=== PATIENT | female | born 1985 | race African-American/Black ===

== ENCOUNTER 2020-01-06 08:37 | Emergency (ER) | payer SELFPAY, OTHER ==
[2020-01-06] MEDS ORDERED: Ibuprofen 800 MG TAB ONE (09:30)
[2020-01-06] MEDS ORDERED: Dexamethasone 4 MG TAB ONE (09:30)
== END 2020-01-06 09:49 | disposition home or self-care (01) ==
LOC: ERS 08:37
DX: U07.1 COVID-19 (principal)
CPT/HCPCS: 99283; J8540

== ENCOUNTER 2020-02-19 08:04 | Emergency (ER) | payer OTHER, SELFPAY ==
[2020-02-19] MEDS ORDERED: Ondansetron ODT 4 MG TAB ONE (08:48)
[2020-02-19] MEDS ORDERED: Ketorolac Tromethamine 30 MG/ML VIAL ONE (08:48)
[2020-02-19 17:20] LABS: SARS-CoV-2 MS2 Positive; SARS-CoV-2 N Gene Negative; SARS-CoV-2 S Gene Negative; SARS-CoV-2 by NAA Not Detected (NotDetected); SARS-CoV-2 orf1ab Negative
== END 2020-02-19 09:25 | disposition home or self-care (01) ==
LOC: ERS 08:04
DX: R51 Headache (principal); R10.9 Unspecified abdominal pain; R11.0 Nausea; Z20.828 Contact with and (suspected) exposure to other viral communicable diseases
CPT/HCPCS: 87635; 96372; 99284; J1885; Q0162; U0003

== ENCOUNTER 2020-03-14 07:31 | Emergency (ER) | payer SELFPAY | END 2020-03-14 08:15 | disposition home or self-care (01) | LOC: ERS 07:31 | DX: M54.5 Low back pain (principal) | CPT/HCPCS: 99281 ==

== ENCOUNTER 2020-06-04 12:10 | Emergency (ER) | payer SELFPAY | END 2020-06-04 12:27 | disposition home or self-care (01) | LOC: ERS 12:10 | DX: J02.9 Acute pharyngitis, unspecified (principal); Z20.822 Contact with and (suspected) exposure to COVID-19 | CPT/HCPCS: 99283 ==

== ENCOUNTER 2020-06-21 19:12 | Emergency (ER) | payer SELFPAY ==
--- NOTE | 2020-06-21 20:07 | RAD ---
LEFT ELBOW FOUR VIEWS: 06/21/20 HISTORY: Elbow pain. No history of injury. There are no signs of fracture, dislocation, joint effusion or other bony or soft tissue findings. IMPRESSION: Negative left elbow. POS: OFF
[2020-06-21] MEDS ORDERED: Ketorolac Tromethamine 30 MG/ML VIAL ONE (20:50)
== END 2020-06-21 20:58 | disposition home or self-care (01) ==
LOC: ERS 19:12
DX: M77.9 Enthesopathy, unspecified (principal)
CPT/HCPCS: 96372; J1885

== ENCOUNTER 2020-07-21 11:10 | Emergency (ER) | payer SELFPAY | END 2020-07-21 14:02 | disposition left against medical advice (07) | LOC: ERS 11:10 | DX: Z53.21 Procedure and treatment not carried out due to patient leaving prior to being seen by health care provider (principal) ==

== ENCOUNTER 2020-07-22 16:03 | Emergency (ER) | payer SELFPAY ==
[2020-07-22] MEDS ORDERED: Bicillin LA 2.4 MILL.UNITS/4 ML SYRINGE ONE (18:06)
[2020-07-22] MEDS ORDERED: Dexamethasone 4 MG TAB ONE ×2 (18:06→18:08)
[2020-07-22] MEDS ORDERED: Bicillin LA 1.2 MILLION UNITS/2 ML SYRINGE ONE (18:08)
== END 2020-07-22 18:33 | disposition home or self-care (01) ==
LOC: ERS 16:03
DX: J02.0 Streptococcal pharyngitis (principal)
CPT/HCPCS: 87430; 96372; 99283; J0561; J8540

== ENCOUNTER 2020-09-17 10:05 | Emergency (ER) | payer SELFPAY ==
[2020-09-17] MEDS ORDERED: Ketorolac Tromethamine 30 MG/ML VIAL ONE (10:28)
== END 2020-09-17 11:00 | disposition home or self-care (01) ==
LOC: ERS 10:05
DX: M25.462 Effusion, left knee (principal)
CPT/HCPCS: 96372; 99283; J1885

== ENCOUNTER 2020-09-30 12:47 | Emergency (ER) | payer SELFPAY ==
[2020-09-30 13:47] LABS: Bacteria/HPF None Seen HPF (None Seen); Bilirubin Negative (Negative); Blood, Urine 3+ (Negative); Clarity Clear (Clear); Glucose, Urine (Dipstick) Normal (Negative); Ketone, Urine Trace mg/dL (Negative); Leukocyte Negative Leu/uL (Negative); Nitrite Negative (Negative); Protein, Urine (Dipstick) 20 mg/dL (Neg-Trace); RBC/HPF 0-3 HPF (0-3); Specific Gravity, Urine 1.023 (1.002-1.036); Urobilinogen Normal mg/dL (Less than 2); WBC/HPF 0-3 HPF (0-3); pH, Urine 6.5 (5.0-9.0)
[2020-09-30 13:51] LABS: Pregnancy Test - Urine (BHCG) Negative (Negative); Pregu Control Background? CLEAR/WHITE (CLR/WHITE); Pregu Control Bar Appear? YES (CONTROL BAR); Specific Gravity 1.022 (1.002-1.036)
[2020-09-30 13:53] LABS: Amphetamine Not Detected (NotDetected); Barbiturates Screen Not Detected (NotDetected); Benzodiazepine Screen Not Detected (NotDetected); Cocaine Metabolite Screen Not Detected (NotDetected); Medtox Control Line Valid? VALID (VALID); Medtox Reader # READER 4; Methadone Not Detected (NotDetected); Methamphetamine Not Detected (NotDetected); Opiate Screen Not Detected (NotDetected); Oxycodone Screen Not Detected (NotDetected); Phencyclidine (PCP) Not Detected (NotDetected); THC/Cannabinoid Screen Detected (NotDetected); Tricyclic Screen Not Detected (NotDetected)
[2020-09-30 14:09] LABS: #Lymphocytes 1.8 thou/uL (1.20-3.40); #Monocytes 0.6 thou/uL (0.11-0.59); #Neutrophils 8.1 thou/uL (1.40-6.50); %Basophils 0.4 % (0.0-1.0); %Eosinophils 0.3 % (0.0-10.0); %Monocytes 5.6 % (0.0-10.0); %Neutrophils 76.7 % (42.0-75.0); Hemoglobin 11.4 g/dL (12.0-16.0); Mean Corpuscular HGB CONC 33.5 g/dL (32.0-36.0); Mean Corpuscular Hemoglobin 31.3 pg (27.0-31.0); Mean Corpuscular Volume 93.4 fL (78.0-98.0); Mean Platelet Volume 8.5 fL (7.4-10.4); Platelet Count 248 thou/uL (130-400); RBC Distribution Width 12.2 % (11.5-14.5); Red Blood Cell (RBC) Count 3.66 mill/uL (4.20-5.40); White Blood Cell (WBC) Count 10.6 thou/uL (4.8-10.8)
[2020-09-30 14:09] LABS: ALT (SGPT) 12 U/L (8-55); AST (SGOT) 19 U/L (5-34); Acetaminophen Less than 6.0 mcg/mL (10.0-30.0); Albumin 3.9 g/dL (3.5-5.0); Alcohol Less than 10 mg/dL (Less than 10); Alkaline Phosphatase 63 U/L (40-110); Anion Gap 14 mmol/L (10-20); BUN (Urea Nitrogen) 8 mg/dL (7.0-18.7); Bilirubin, Total 0.7 mg/dL (0.2-1.2); CK (CPK) 163 U/L (29-168); Calc. Creatinine Clearance 0 mL/min (70-130); Calcium 8.8 mg/dL (7.8-10.44); Carbon Dioxide 19 mmol/L (22-29); Chloride 109 mmol/L (98-107); Globulin 3.8 g/dL (2.4-3.5); Glucose 87 mg/dL (70-105); Protein, Total 7.7 g/dL (6.0-8.3); Salicylate Less than 8.0 mg/dL (15.0-30.0); Sodium 138 mmol/L (136-145)
[2020-09-30] MEDS ORDERED: Acetaminophen 500 MG TAB ONE (19:56)
[2020-10-01] MEDS ORDERED: Ibuprofen 800 MG TAB ONE ×2 (00:48)
[2020-10-01 07:32] LABS: Free T4 (Free Thyroxine) 1.1 ng/dL (0.70-1.48); Thyroid Stimulating Hormone 0.2086 uIU/mL (0.35-4.94)
== END 2020-10-01 15:42 ==
LOC: ERS 12:47
DX: T38.1X2A Poisoning by thyroid hormones and substitutes, intentional self-harm, initial encounter (principal); F32.9 Major depressive disorder, single episode, unspecified; Z79.899 Other long term (current) drug therapy
CPT/HCPCS: 36415; 80053; 80306; 80307; 81003; 81015; 81025; 82550; 84439; 84443; 85025; 93005

== ENCOUNTER 2020-11-14 08:18 | Emergency (ER) | payer SELFPAY ==
[2020-11-14 08:44] LABS: Bilirubin Small (Negative); Blood, Urine Negative (Negative); Glucose, Urine (Dipstick) Negative (Negative); Ketone, Urine Trace mg/dL (Negative); Leukocyte Negative (Negative); Nitrite Negative (Negative); Protein, Urine (Dipstick) Trace mg/dL (Neg-Trace)
[2020-11-14 08:45] LABS: Clarity Clear (Clear)
[2020-11-14 08:47] LABS: Specific Gravity, Urine 1.031 (1.002-1.036)
[2020-11-14 08:48] LABS: Bacteria/HPF None Seen HPF (None Seen); WBC/HPF 0-3 HPF (0-3)
[2020-11-14 08:55] LABS: Pregnancy Test - Urine (BHCG) Negative (Negative); Pregu Control Background? CLEAR/WHITE (CLR/WHITE); Pregu Control Bar Appear? YES (CONTROL BAR); Specific Gravity 1.031 (1.002-1.036)
[2020-11-14 09:38] LABS: #Basophils 0.1 thou/uL (0.0-0.2); #Eosinphils 0.1 thou/uL (0.0-0.7); #Lymphocytes 1.9 thou/uL (1.20-3.40); #Monocytes 0.6 thou/uL (0.11-0.59); #Neutrophils 4.6 thou/uL (1.40-6.50); %Basophils 1.3 % (0.0-1.0); %Eosinophils 0.8 % (0.0-10.0); %Lymphocytes 25.4 % (21.0-51.0); %Monocytes 8.6 % (0.0-10.0); %Neutrophils 63.8 % (42.0-75.0); Hemoglobin 11.2 g/dL (12.0-16.0); Mean Corpuscular HGB CONC 32.8 g/dL (32.0-36.0); Mean Corpuscular Hemoglobin 30.5 pg (27.0-31.0); Mean Corpuscular Volume 93.2 fL (78.0-98.0); Mean Platelet Volume 8.2 fL (7.4-10.4); Platelet Count 254 thou/uL (130-400); RBC Distribution Width 12.1 % (11.5-14.5); Red Blood Cell (RBC) Count 3.66 mill/uL (4.20-5.40); White Blood Cell (WBC) Count 7.3 thou/uL (4.8-10.8)
[2020-11-14 09:59] LABS: ALT (SGPT) 35 U/L (8-55); AST (SGOT) 40 U/L (5-34); Albumin 3.9 g/dL (3.5-5.0); Alkaline Phosphatase 66 U/L (40-110); Anion Gap 12 mmol/L (10-20); BUN (Urea Nitrogen) 5 mg/dL (7.0-18.7); Bilirubin, Total 0.7 mg/dL (0.2-1.2); Calc. Creatinine Clearance 0 mL/min (70-130); Calcium 9.1 mg/dL (7.8-10.44); Carbon Dioxide 22 mmol/L (22-29); Chloride 107 mmol/L (98-107); Globulin 4.1 g/dL (2.4-3.5); Glucose 86 mg/dL (70-105); Lipase 18 U/L (8-78); Potassium 3.8 mmol/L (3.5-5.1); Sodium 137 mmol/L (136-145)
[2020-11-14] MEDS ORDERED: Ondansetron PF 4 MG/2 ML Vial ONE (10:28)
[2020-11-14] MEDS ORDERED: Ketorolac Tromethamine 30 MG/ML VIAL ONE (12:14)
[2020-11-14] MEDS ORDERED: Iopamidol-370 76% 500 ML 1 ML ONE (13:45)
== END 2020-11-14 12:45 | disposition home or self-care (01) ==
LOC: ERS 08:18
DX: R10.84 Generalized abdominal pain (principal)
CPT/HCPCS: 36415; 74177; 80053; 81003; 81025; 83690; 85025; 96374; 96375; J1885; J2405; Q9967

== ENCOUNTER 2020-12-08 08:29 | Emergency (ER) | payer BC, SELFPAY ==
[2020-12-08] MEDS ORDERED: Ketorolac Tromethamine 30 MG/ML VIAL ONE (08:51)
== END 2020-12-08 09:41 | disposition home or self-care (01) ==
LOC: ERS 08:29
DX: M25.462 Effusion, left knee (principal); M25.562 Pain in left knee
CPT/HCPCS: 96372; J1885

== ENCOUNTER 2021-01-18 | Day surgery (SDC) | payer BC | END 2021-01-18 13:25 | disposition home or self-care (01) | PROC: 0CTQXZZ Resection of Adenoids, External Approach (ICD-10-PCS; principal; 2021-01-18) | PROC: 0CTPXZZ Resection of Tonsils, External Approach (ICD-10-PCS; principal; 2021-01-18) ==

== ENCOUNTER 2021-04-28 15:53 | Emergency (ER) | payer BC | END 2021-04-28 17:55 | disposition home or self-care (01) | LOC: ERS 15:53 | DX: M25.562 Pain in left knee (principal) ==

== ENCOUNTER 2021-05-19 08:16 | Emergency (ER) | payer BC ==
[2021-05-19] MEDS ORDERED: Ibuprofen 800 MG TAB ONE (08:36)
== END 2021-05-19 09:05 | disposition home or self-care (01) ==
LOC: ERS 08:16
DX: J20.9 Acute bronchitis, unspecified (principal); R09.1 Pleurisy
CPT/HCPCS: 71045

== ENCOUNTER 2022-02-05 21:47 | Emergency (ER) | payer BC ==
[2022-02-05] MEDS ORDERED: Ketorolac Tromethamine 30 MG/ML VIAL ONE (23:53)
[2022-02-05] MEDS ORDERED: Metoclopramide HCl 10 MG/2 ML VIAL ONE (23:53)
== END 2022-02-06 01:40 | disposition home or self-care (01) ==
LOC: ERS 21:47
DX: G43.909 Migraine, unspecified, not intractable, without status migrainosus (principal)
CPT/HCPCS: 96374; 96375; J1885; J2765

== ENCOUNTER 2022-03-02 15:18 | Emergency (ER) | payer BC ==
[2022-03-02 15:56] LABS: #Eosinphils 0.1 thou/uL (0.0-0.7); #Lymphocytes 2.5 thou/uL (1.20-3.40); #Monocytes 0.6 thou/uL (0.11-0.59); #Neutrophils 6.5 thou/uL (1.40-6.50); %Basophils 0.3 % (0.0-1.0); %Eosinophils 0.8 % (0.0-10.0); %Lymphocytes 25.5 % (21.0-51.0); %Monocytes 5.8 % (0.0-10.0); %Neutrophils 67.7 % (42.0-75.0); Hemoglobin 12.1 g/dL (12.0-16.0); Mean Corpuscular HGB CONC 31.3 g/dL (32.0-36.0); Mean Corpuscular Hemoglobin 29.9 pg (27.0-31.0); Mean Corpuscular Volume 95.6 fL (78.0-98.0); Mean Platelet Volume 8.8 fL (7.4-10.4); Platelet Count 272 thou/uL (130-400); RBC Distribution Width 13.2 % (11.5-14.5); Red Blood Cell (RBC) Count 4.05 mill/uL (4.20-5.40); White Blood Cell (WBC) Count 9.6 thou/uL (4.8-10.8)
[2022-03-02 16:30] LABS: ALT (SGPT) 23 U/L (8-55); AST (SGOT) 19 U/L (5-34); Albumin 4.3 g/dL (3.5-5.0); Alkaline Phosphatase 67 U/L (40-110); Anion Gap 12 mmol/L (10-20); BUN (Urea Nitrogen) 8 mg/dL (7.0-18.7); Bilirubin, Total 0.6 mg/dL (0.2-1.2); Calc. Creatinine Clearance 0 mL/min (70-130); Calcium 9.4 mg/dL (7.8-10.44); Carbon Dioxide 21 mmol/L (22-29); Chloride 109 mmol/L (98-107); Estimated GFR 83; Globulin 4.3 g/dL (2.4-3.5); Glucose 84 mg/dL (70-105); Potassium 3.8 mmol/L (3.5-5.1); Protein, Total 8.6 g/dL (6.0-8.3); Sodium 138 mmol/L (136-145)
[2022-03-02 16:58] LABS: BHCG - Serum Negative (NEGATIVE); Pregs Control Background? CLEAR/WHITE (CLR/WHITE); Pregs Control Bar Appear? YES (CONTROL BAR)
[2022-03-02] MEDS ORDERED: Metoclopramide HCl 10 MG/2 ML VIAL ONE (17:22)
[2022-03-02] MEDS ORDERED: Acetaminophen 500 MG TAB ONE (17:22)
[2022-03-02] MEDS ORDERED: diphenhydrAMINE 50 MG/ML VIAL ONE (17:23)
[2022-03-02] MEDS ORDERED: Ketorolac Tromethamine 30 MG/ML VIAL ONE (17:23)
== END 2022-03-02 19:48 | disposition home or self-care (01) ==
LOC: ERS 15:18
DX: R51.9 Headache, unspecified (principal)
CPT/HCPCS: 36415; 80053; 84484; 84703; 85025; 93005; 96374; 96375; J1200; J1885; J2765

== ENCOUNTER 2023-01-26 11:25 | Emergency (ER) | payer SELFPAY ==
[2023-01-26] MEDS ORDERED: Acetaminophen 500 MG TAB ONE (11:59)
[2023-01-26 12:41] LABS: SARS-CoV-2 NAA Rapid Test Not Detected (NotDetected)
== END 2023-01-26 13:35 | disposition home or self-care (01) ==
LOC: ERS 11:25
DX: B34.9 Viral infection, unspecified (principal); Z20.822 Contact with and (suspected) exposure to COVID-19
CPT/HCPCS: 99283

== ENCOUNTER 2023-03-21 09:24 | Emergency (ER) | payer SELFPAY ==
[2023-03-21 09:55] LABS: #Eosinphils 0.1 thou/uL (0.0-0.7); #Monocytes 0.8 thou/uL (0.11-0.59); %Basophils 0.3 % (0.0-1.0); %Eosinophils 0.8 % (0.0-10.0); %Lymphocytes 21.8 % (21.0-51.0); %Monocytes 7.9 % (0.0-10.0); Hemoglobin 11.9 g/dL (12.0-16.0); Mean Corpuscular HGB CONC 31.3 g/dL (32.0-36.0); Mean Corpuscular Hemoglobin 29.3 pg (27.0-31.0); Mean Corpuscular Volume 93.6 fl (78.0-98.0); Mean Platelet Volume 10.6 fL (7.4-10.4); Platelet Count 324 10x3/uL (130-400); RBC Distribution Width 14.2 % (11.5-14.5); Red Blood Cell (RBC) Count 4.06 mill/uL (4.20-5.40); White Blood Cell (WBC) Count 10.1 10x3/uL (4.8-10.8)
[2023-03-21 10:12] LABS: Acetaminophen Less than 10 mcg/mL (10.0-30.0); Alcohol Less than 10.0 mg/dL (Less than 10); Salicylate Less than 8.0 mg/dL (15.0-30.0)
[2023-03-21 10:15] LABS: ALT (SGPT) 27 U/L (8-55); AST (SGOT) 29 U/L (5-34); Albumin 4.5 g/dL (3.5-5.0); Alkaline Phosphatase 74 U/L (40-110); Anion Gap 15 mmol/L (10-20); BUN (Urea Nitrogen) 7 mg/dL (7.0-18.7); Bilirubin, Total 0.4 mg/dL (0.2-1.2); Calc. Creatinine Clearance 0 mL/min (70-130); Calcium 9.4 mg/dL (7.8-10.44); Carbon Dioxide 16 mmol/L (22-29); Chloride 110 mmol/L (98-107); Estimated GFR 74; Globulin 4.3 g/dL (2.4-3.5); Glucose 96 mg/dL (70-105); Potassium 4.3 mmol/L (3.5-5.1); Protein, Total 8.8 g/dL (6.0-8.3); Sodium 137 mmol/L (136-145)
[2023-03-21 10:19] LABS: Alcohol Less than 10.0 mg/dL (Less than 10); CK (CPK) 116 U/L (29-168)
[2023-03-21 10:20] LABS: Bilirubin Negative (Negative); Blood, Urine 3+ (Negative); CAUTI Indications for Culture Alt mental st,lethar; Clarity Turbid (Clear); Glucose, Urine (Dipstick) Normal (Negative); Ketone, Urine Negative (Negative); Leukocyte 75 Leu/uL (Negative); Nitrite Negative (Negative); Protein, Urine (Dipstick) Negative (Neg-Trace); RBC/HPF Greater than 50 HPF (0-3); Specific Gravity, Urine 1.009 (1.002-1.036); Squamous Epithelial 0-3 HPF (0-3); Urobilinogen Normal mg/dL (Less than 2)
[2023-03-21 10:21] LABS: Bacteria/HPF 1+ HPF (None Seen); Pregnancy Test - Urine (BHCG) Negative (Negative)
[2023-03-21 10:22] LABS: Pregu Control Background? CLEAR/WHITE (CLR/WHITE); Pregu Control Bar Appear? YES (CONTROL BAR); Specific Gravity 1.009 (1.002-1.036); Urine Culture Reflex No No
[2023-03-21 10:23] LABS: Amphetamine Not Detected (NotDetected); Barbiturates Screen Not Detected (NotDetected); Benzodiazepine Screen Not Detected (NotDetected); Cocaine Metabolite Screen Not Detected (NotDetected); Methadone Not Detected (NotDetected); Methamphetamine Not Detected (NotDetected); Opiate Screen Not Detected (NotDetected); Oxycodone Screen Not Detected (NotDetected); Phencyclidine (PCP) Not Detected (NotDetected); THC/Cannabinoid Screen Not Detected (NotDetected); Tricyclic Screen Not Detected (NotDetected)
[2023-03-21] MEDS ORDERED: Boostrix 0.5 ML (Tdap) VIAL (>/=7 yrs of age) ONE (10:32)
[2023-03-21] MEDS ORDERED: Lorazepam 1 MG TAB ONE (12:28)
== END 2023-03-21 16:02 ==
LOC: ERS 09:24
DX: R45.851 Suicidal ideations (principal)
CPT/HCPCS: 36415; 80306; 80307; 81001; 81025; 82550; 84443; 90471; 90715; 93005